=== PATIENT | female | born 1975 ===

== ENCOUNTER → 2017-08-10 21:39 | Observation (INO) ==
[2017-08-10 20:17] LABS: Bilirubin,Urine Negative (Negative); Blood,Urine Negative (Negative); Clarity,Urine Clear (Clear); Color,Urine Yellow (Yellow); Glucose,Urine (UA) Normal (Normal); Ketones,Urine Negative (Negative); Leukocyte Esterase,Urine Negative (Negative); Nitrite,Urine Negative (Negative); Protein,Urine Negative (Neg-Trace); Specific Gravity,Urine 1.007 (1.010-1.025); Urobilinogen,Urine Normal (Normal)
[2017-08-10 20:23] LABS: Amphetamine Screen,Urine Negative ng/mL (Cutoff=1000); Barbiturate Screen,Urine Negative ng/mL (Cutoff=200); Benzodiazepines Screen,Urine Negative ng/mL (Cutoff=200); Cannabinoid Screen,Urine Negative ng/mL (Cutoff = 50); Cocaine Screen,Urine Negative ng/mL (Cutoff= 300); Opiate Screen,Urine Negative ng/mL (Cutoff=300); Phencyclidine Screen,Urine Negative ng/mL (Cutoff=25)
--- NOTE | 2017-08-10 22:32 | Event Note ---
Date of Encounter: 08/10/17 Time of Encounter: 21:30 Patient seen by nursing. Arrived to labor and delivery with c/o contractions. Positive movement. Denies headache, epigastric pain, vaginal discharge, and vaginal bleeding. Reactive NST No cervical change with serial cervical exams Discharge home with labor precautions. Will follow up in the office and PRN
== END | disposition home or self-care (01) ==
LOC: 1NENULAB
PROVIDERS: ADMIT Obstetrics & Gynecology; ATTEND Obstetrics & Gynecology

== ENCOUNTER 2017-08-21 10:53 | Inpatient (IN) ==
[2017-08-21] MEDS ORDERED: *HR* Nalbuphine 20 MG/ML AMPUL IVP PRN (11:28)
[2017-08-21] MEDS ORDERED: Metoclopramide 10 MG/2 ML VIAL IVP PRN (11:28)
[2017-08-21] MEDS ORDERED: Naloxone 0.4 MG/ML INJ IVP PRN (11:28)
[2017-08-21] MEDS ORDERED: Ondansetron 4 MG/2 ML VIAL IVP PRN (11:28)
[2017-08-21] MEDS ORDERED: Famotidine 20 MG/2 ML VIAL IVP PRN (11:28)
[2017-08-21 11:59] LABS: Basophils % 0.3 %; Eosinophils # 0.1 K/mcL (0.0-0.6); Eosinophils % 0.8 %; Hematocrit 42.8 % (35.3-44.9); Hemoglobin 13.8 g/dL (11.5-15.4); Immature Granulocytes % 0.5 % (0-4); Lymphocytes # 1.2 K/mcL (0.6-4.6); Lymphocytes % 15.6 %; Mean Corpuscular HGB Conc 32.2 g/dL (31.6-35.5); Mean Corpuscular Volume 89.9 fL (83.0-100.0); Mean Platelet Volume 10.7 fL (9.4-12.4); Monocytes # 0.4 K/mcL (0.0-1.3); Monocytes % 5.2 %; Neutrophils # 6.1 K/mcL (1.6-8.9); Platelet Count 251 K/mcL (140-400); Red Blood Count 4.76 M/mcL (3.82-4.97); Red Cell Distribution Width 13.7 % (11.5-14.5); Segmented Neutrophils % 77.6 %
[2017-08-21] MEDS ORDERED: Ringers Solution, Lactated 1,000 ML ONE ×3 (12:03→15:43)
[2017-08-21] MEDS ORDERED: Oxytocin 20 units/ LR 1000 mL 20 UNIT/1,000 ML BAG IVC SCH ×2 (12:15→21:54)
[2017-08-21 13:02] LABS: Protein/Creatinine Ratio,Urine 0.19 mg/mg (0.00-0.20)
[2017-08-21 13:04] LABS: Amphetamine Screen,Urine Negative ng/mL (Cutoff=1000); Barbiturate Screen,Urine Negative ng/mL (Cutoff=200); Benzodiazepines Screen,Urine Negative ng/mL (Cutoff=200); Cannabinoid Screen,Urine Negative ng/mL (Cutoff = 50); Cocaine Screen,Urine Negative ng/mL (Cutoff= 300); Opiate Screen,Urine Negative ng/mL (Cutoff=300); Phencyclidine Screen,Urine Negative ng/mL (Cutoff=25)
--- NOTE | 2017-08-21 13:04 | OB/GYN History & Physical ---
Date of Encounter: 08/21/17 Time of Encounter: 12:50 Assessment and Plan (1) 38 weeks gestation of Current visit: Yes Status: Acute (2) IUGR (intrauterine growth restriction) Current visit: Yes Status: Acute Ultrasound readings discussed with Dr. Barnard and Dr. Bowen Naik [facility] at [facility], proceed with induction of labor due to abdominal circumference being less than 3% Induction of labor with Pitocin AROM after an good labor pattern GBS negative Anticipate (3) Advanced maternal age (AMA), 40 years or greater Current visit: Yes Status: Acute (4) Celiac disease Current visit: Yes Status: Acute Maintaining gluten-free diet History of Present Illness HPI: Ms. Desai is a 41 year old female presents for induction of labor due to IUGR EFW 22 percent, abdominal circumference 2.5%. Patient reports good movement, denies vaginal bleeding, contractions, leaking of fluid. care with Dr. Link. complicated by advanced maternal age, celiac disease, elevated 1 hour glucose. Labs: A+, rubella and varicella immune, GBS negative, all other serologies negative Past Med Surg Social Fam HX - Past Medical History Medical history: no medical history Psychiatric history: no psych history - Past Surgical History Surgical History: no surgical history - Social History Smoking Status: Never smoker Alcohol use: none Drug use: none - Family History Mother Living Status: Still Living Hx Family Cardiac Disorders: Yes (HTN) Hx Family Respiratory Disorders: Yes (Asthma) Hx Family Cancer: No Hx Family GI Disorders: No Hx Family Genitourinary Disorders: No Hx Family Endocrine Disorder: No Hx Family Musculoskeletal Disorders: No Hx Family Neuromuscular Disorders: No Hx Family Neurologic Disorders: No Hx Family HEENT Disorders: No Hx Family Autoimmune Disorders: No Hx Family Reproductive Disorders: No Hx Family Psychosocial Disorders: No Hx Family Medical Disorders: No Obstetrical History - Pregnancies : 6 Para: 3 Term: 3 : 0 Ab's: 2 Livin Medications and Allergies Vitamins 1 tab PO DAILY 08/21/17 [History] 3 Allergy/AdvReac Type Severity Reaction Status Date / Time gluten Allergy Mild Rash Verified 08/10/17 19:27 Exam - Constitutional Constitutional: well developed, well nourished, no acute distress, average body habitus - Neck Neck exam: full ROM - Lungs Respiratory exam: CTAB - Cardiovascular Cardiovascular exam: RRR - Abdomen Abdomen: Present: bowel sounds normal, gravid - Extremities Extremities exam: normal capillary refill, normal inspection - Vagina Vagina: Present: normal moisture - Cervix Dilation: 4 Effacement: 80 Station: -1 - Uterus Uterus exam: Present: normal size, normal contour Results Result Diagrams: 08/21/17 11:30 All other labs normal. - VTE Reasons for not Prescribing Prophylaxis: Treatment not Indicated - Low risk for VTE
[2017-08-21] MEDS ORDERED: Acetaminophen 325 MG TABLET PO ONE (13:35)
[2017-08-21 14:17] LABS: Alanine Aminotransferase 11 Units/L (7-52); Aspartate Amino Transferase 15 Units/L (13-39); BUN/Creatinine Ratio 10 (6-26); Blood Urea Nitrogen 6 mg/dL (6-20); Lactate Dehydrogenase 166 Units/L (140-271); eGFR For African Americans > 60 (> 60); eGFR For Non-African Americans > 60 (> 60)
--- NOTE | 2017-08-21 14:40 | Anesthesia Evaluation PreOp ---
Date of Encounter: 08/21/17 Time of Encounter: 14:30 - Past History Planned Operation: edenilson Cardiac History: Denies any Significant Hx Pulmonary History: Denies Any Significant HX ORE MIXER History: Denies Any Significant HX Other Medical History: Other (celiac disease) Anesthesia History: No Prior Anesthetic Complications : Yes Test: Positive Alcohol Use: none Drug use: none Medications and Allergies Vitamins 1 tab PO DAILY 08/21/17 [History] 3 Allergy/AdvReac Type Severity Reaction Status Date / Time gluten Allergy Mild Rash Verified 08/10/17 19:27 - Meds/Allergy Pre-op Review Medications Reviewed: Yes Allergies Reviewed: Yes Beta Blockers on Current Med List: No Anesthesia Results - Labs 08/21/17 11:30 08/21/17 11:31 Anesthesia Exam - HEENT Pupil (Motor): Pupils equal Mallampati: II Teeth: Normal Oral Opening: Greater than 3 - ORE MIXER LOC: Oriented ORE MIXER Motor: Normal RUE, Normal LUE, Normal RLE, Normal LLE, Normal Face ORE MIXER Sensory: Normal: RUE, LUE, RLE, LLE, Face - Cardiac Rhythm: Regular Murmur: None JVD: No Carotid Bruit: No - Pulmonary Breath Sounds: bilateral Clear Respiratory Effort: Symmetrical Anesthesia Assess/Plan ASA Score: 2 Modified [place] Scale for Level of Consciousness: Cooperative, oriented, and tranquil Anesthetic Plan: Regional Autologous Blood: No Monitoring Plan: Standard Monitors
[2017-08-21] MEDS ORDERED: Bupivacaine-MPF 0.25% 10 ML VIAL EP ONE (14:42)
[2017-08-21] MEDS ORDERED: Epidural Premix (fent/bupiv) 110 ML EP SCH (14:45)
[2017-08-21] MEDS ORDERED: Bupivacaine-MPF 0.25% 10 ML VIAL ONE (15:13)
[2017-08-21] MEDS ORDERED: Epidural Premix (fent/bupiv) 110 ML EP ONE (15:13)
--- NOTE | 2017-08-21 17:32 | OB Labor Progress Note ---
Date of Encounter: 08/21/17 Time of Encounter: 17:19 Labor Progress Note - Subjective Subjective: Pt comfortable with epidural - Cervix Cervix: 6/90/-1 - Heart Tones Heart Tones: 120/moderate/ no accels/prolonged and variable decels since AROM - Interventions Interventions: AROM at 1615,prolonged decel, FSE placed, IUPC placed later. - Plan Plan: Continue current management, restart pitocin if tracing improves, Anticipate Dr. Barnard aware and called to bedside during tracing.
--- NOTE | 2017-08-21 20:42 | OB/GYN Procedure Note ---
Delivery - Delivery Date: 08/21/17 Provider: Loretta Rosales Intrapartum events: none Delivery induction: AROM, oxytocin Delivery monitor: external FHT, external uterine, internal FHT, internal uterine Anesthesia: epidural Estimated Blood Loss: 200 - Infant (s) A Infant Delivery Date: 08/21/17 Infant Delivery Time: 19:46 Presentation: vertex Position: OA Gender: Male Viability: Viable Pounds: 6 Ounces: 5 Weight Gram: 2.855 kg at 1 minute: 8 at 5 mins: 9 Shoulder Dystocia: not encountered Placenta: spontaneous Cord: nuchal cord, 3 umbilical vessels, nuchal reduced - Repair Episiotomy: none Laceration Description: Perineal - 2nd Degree - Complications Delivery complications: none Delivery comments: Patient admitted for induction of labor for IUGR with Pitocin and AROM. Progressed to complete, maternal bearing down efforts to of liveborn male. Vertex delivered OA, nuchal cord identified and manually reduced, shoulders and body easily followed. No shoulder dystocia encountered. Infant placed on maternal abdomen for drying and stimulation. Apgars 8/9. Sensitive delivered spontaneously, complete (Demian). Fundus massaged until firm, placenta started per policy Second-degree perineal laceration repaired with 3-0 Vicryl. EBL 200 - Disposition Mom disposition: stable in LDR [place] disposition: stable in LDR
[2017-08-21] MEDS ORDERED: Acetaminophen 325 MG TABLET PO PRN (21:54)
[2017-08-21] MEDS ORDERED: Benzocaine/Menthol 56 GM AEROSOL SPRAY TP PRN (21:54)
[2017-08-21] MEDS ORDERED: Lanolin 7 G OINT...G. TP PRN (21:54)
[2017-08-22] MEDS: Ibuprofen 600 MG TABLET PO PRN ×2 (07:59→19:55)
[2017-08-22] MEDS ORDERED: Prenatal Vit/FA 1 EACH TABLET PO SCH (09:00)
--- NOTE | 2017-08-22 09:18 | Discharge Summary ---
Date of Encounter: 08/22/17 Time of Encounter: 09:16 - Discharge Diagnosis (1) Status post vaginal delivery Priority: Primary Status: Acute Comments: Continue routine care discharge home today follow up in 4-6 weeks - Discharge Medications Prescriptions: Ibuprofen [Motrin] 600 mg PO Q6HR PRN #60 tablet PRN Reason: Cramping Home Medications: Benzocaine/Menthol [place] [Dermoplast [place]] 1 appl TP QID PRN aerosol 08/22/17 [Rx] Ibuprofen [Motrin] 600 mg PO Q6HR PRN #60 tablet 08/22/17 [Rx] Vit/FA 1 each PO DAILY tablet 08/22/17 [Rx] Allergies/Adverse Reactions: 3 Allergy/AdvReac Type Severity Reaction Status Date / Time gluten Allergy Mild Rash Verified 08/10/17 19:27 Data Procedures and tests throughout hospitalization: Laboratory Tests 08/21/17 08/21/17 08/21/17 11:30 11:30 11:30 WBC 7.8 RBC 4.76 Hgb 13.8 Hct 42.8 MCV 89.9 MCH 29.0 MCHC 32.2 RDW 13.7 Plt Count 251 MPV 10.7 Immature Gran % 0.5 Seg Neutrophils % 77.6 Lymphocytes % 15.6 Monocytes % 5.2 Eosinophils % 0.8 Basophils % 0.3 Neutrophils # 6.1 Lymphocytes # 1.2 Monocytes # 0.4 Eosinophils # 0.1 Basophils # 0.0 BUN Creatinine Est GFR ( Amer) Est GFR (Non-Af Amer) BUN/Creatinine Ratio Uric Acid AST ALT Lactate Dehydrogenase Urine Creatinine 36 Protein/Creatinin Ratio 0.19 Urine Total Protein 7 Urine Opiates Screen Negative Ur Barbiturates Screen Negative Ur Phencyclidine Scrn Negative Ur Amphetamines Screen Negative U Benzodiazepines Scrn Negative Urine Cocaine Screen Negative U Marijuana (THC) Screen Negative 08/21/17 11:31 WBC RBC Hgb Hct MCV MCH MCHC RDW Plt Count MPV Immature Gran % Seg Neutrophils % Lymphocytes % Monocytes % Eosinophils % Basophils % Neutrophils # Lymphocytes # Monocytes # Eosinophils # Basophils # BUN 6 Creatinine 0.62 Est GFR ( Amer) > 60 Est GFR (Non-Af Amer) > 60 BUN/Creatinine Ratio 10 Uric Acid 4.0 AST 15 ALT 11 Lactate Dehydrogenase 166 Urine Creatinine Protein/Creatinin Ratio Urine Total Protein Urine Opiates Screen Ur Barbiturates Screen Ur Phencyclidine Scrn Ur Amphetamines Screen U Benzodiazepines Scrn Urine Cocaine Screen U Marijuana (THC) Screen Labs on day of discharge: Labs from last 24 hours 08/21/17 08/21/17 08/21/17 11:31 11:30 11:30 WBC 7.8 RBC 4.76 Hgb 13.8 Hct 42.8 MCV 89.9 MCH 29.0 MCHC 32.2 RDW 13.7 Plt Count 251 MPV 10.7 Immature Gran % 0.5 Seg Neutrophils % 77.6 Lymphocytes % 15.6 Monocytes % 5.2 Eosinophils % 0.8 Basophils % 0.3 Neutrophils # 6.1 Lymphocytes # 1.2 Monocytes # 0.4 Eosinophils # 0.1 Basophils # 0.0 BUN 6 Creatinine 0.62 Est GFR ( Amer) > 60 Est GFR (Non-Af Amer) > 60 BUN/Creatinine Ratio 10 Uric Acid 4.0 AST 15 ALT 11 Lactate Dehydrogenase 166 Urine Creatinine 36 Protein/Creatinin Ratio 0.19 Urine Total Protein 7 Urine Opiates Screen Ur Barbiturates Screen Ur Phencyclidine Scrn Ur Amphetamines Screen U Benzodiazepines Scrn Urine Cocaine Screen U Marijuana (THC) Screen 08/21/17 11:30 WBC RBC Hgb Hct MCV MCH MCHC RDW Plt Count MPV Immature Gran % Seg Neutrophils % Lymphocytes % Monocytes % Eosinophils % Basophils % Neutrophils # Lymphocytes # Monocytes # Eosinophils # Basophils # BUN Creatinine Est GFR ( Amer) Est GFR (Non-Af Amer) BUN/Creatinine Ratio Uric Acid AST ALT Lactate Dehydrogenase Urine Creatinine Protein/Creatinin Ratio Urine Total Protein Urine Opiates Screen Negative Ur Barbiturates Screen Negative Ur Phencyclidine Scrn Negative Ur Amphetamines Screen Negative U Benzodiazepines Scrn Negative Urine Cocaine Screen Negative U Marijuana (THC) Screen Negative Date of admission: 08/21/17 10:53 Primary care physician: PCP NONE Consults: 08/21/17 21:54 Consult to Prn Physical Therapist [CONS] Routine Comment: Vaginal delivery, consult needed Discharging clinician: Deanna Mcpherson Anticipated date of discharge: 08/22/17 - Patient Status Disposition: Home, Self-Care Condition: Good Functional capacity at discharge: independent ambulation - Discharge Instructions Follow Up With: NONE,PCP [Primary Care Provider] - Jocelyn Link MD [Partnered Physician] - - Diet and Activity Activity: increase activity as tolerated Diet: regular diet Hospital Course Reason for admission: induction of labor (IUGR) Delivery: Episiotomy: none Other procedures: none complications: none Discharge diagnosis: IUP at term delivered [place] baby: male (bottle feeding) Time Attestation: Total time spent providing and/or coordinating discharge services: Time Spent: Less than 30 minutes Exam - Constitutional Vitals: Temp Pulse Resp BP Pulse Ox 98.1 F 85 16 112/75 97 08/22/17 08:03 08/22/17 08:03 08/22/17 08:05 08/22/17 08:03 08/22/17 00:45 General appearance IM: A&O X 3, pleasant, answers questions appropriately - Respiratory Respiratory exam: Present: CTAB - Cardiovascular Cardiovascular exam IM: Present: RRR, +S1, +S2 - GI/Abdominal GI/Abdominal exam IM: normal bowel sounds - Uterine Tone: Firm Uterus Position: 2 Fingers Below Umbilicus, Midline - Extremities Exam Extremities exam IM: Present: full ROM, normal capillary refill, normal inspection - Neurological Exam Neurological exam: alert, oriented X3, reflexes normal
[2017-08-22 15:58] VITALS: BP 123/86
== END 2017-08-22 20:10 | disposition home or self-care (01) | DRG 775 ==
LOC: 1NENULAB 10:53 → 1NENUOBS 21:48
PROVIDERS: ADMIT Obstetrics & Gynecology; ATTEND Obstetrics & Gynecology